=== PATIENT | male | born 1960 | race Caucasian/White ===

== ENCOUNTER 2016-12-30 11:02 | Emergency (ER) | payer OTHER ==
[~2016-12-30] VITALS: Ht 193 cm; Wt 135.0 kg
[~2016-12-30 11:02] MED LIST: AMLO10TA2 PO; CHLO25TA2 PO; DAPA1TAB3 PO; ENAL20TA PO; GLIM4TAB PO; HYDR-3580 PO; IBUP800T23 PO; METF500T PO; ROBA750T PO; STOOL SOFTNER PO
[2016-12-30 11:04] VITALS: BP 181/101; PULSE 98; RESP 20; TEMP 98.4; O2SAT 99
--- NOTE | 2016-12-30 11:12 | PD ---
HPI Chief Complaint: Complaint Time Seen by Provider: 11:11 Travel History International Travel<30 days: No Contact w/Intl Traveler<30days: No Traveled to known affect area: No History of Present Illness HPI 56-year-old male presents the emergency department with severe right flank pain. Patient's history is that he moved a couple of consciousness 2 weeks ago and thought he strained his back. He's had continued worsening right flank pain since that time. Yesterday he was seen by his primary care physician and had an ultrasound ordered showing a 9 mm stone in the right ureter. Patient was sent home with some medications but pain is much worse this morning, but he has no fever, chills, nausea, or vomiting. Pain is currently 10 over 10. Patient has no previous history of kidney stone prior to this. He is allergic to penicillin otherwise no known drug allergies. PFSH Past Medical History Autoimmune Disease: Yes (RA vs. SA vs fibromyalgia) Cardiovascular Problems: Yes High Cholesterol: Yes Diabetes: Yes Diminished Hearing: No Hypertension: Yes Immunizations Current: Yes Past Surgical History Other Surgery: Yes (LEFT KNEE REPAIR, AND LEFT SHOULDER) Social History Alcohol Use: Yes ("Rarely") Tobacco Use: No Substance Use: No Allergies-Medications (Allergen,Severity, Reaction): Coded Allergies: penicillin G (Unverified Allergy, Unknown, UNKNOWN, 12/30/16) Reported Meds & Prescriptions Reported Meds & Active Scripts Active Ibuprofen 800 Mg Tab 800 Mg PO Q8H PRN Robaxin (Methocarbamol) 750 Mg Tab 750 Mg PO Q8HR Reported Lisinopril 40 Mg Tab 40 Mg PO BID Flexeril (Cyclobenzaprine HCl) 10 Mg Tab 10 Mg PO TID Hydrocodone-Acetaminophen 7.5-325 mg Tab 1 Tab PO TID PRN [OTC stool softner] 1 Tab PO BID Enalapril (Enalapril Maleate) 20 Mg Tab 20 Mg PO BID Glimepiride 4 Mg Tab 4 Mg PO BIDAC Chlorthalidone 25 Mg Tab 25 Mg PO DAILY Amlodipine (Amlodipine Besylate) 10 Mg Tab 10 Mg PO DAILY Farxiga (Dapagliflozin) 10 Mg Tab 10 Mg PO DAILY Metformin (Metformin HCl) 500 Mg Tab 500 Mg PO BIDPC With meals Review of Systems Except as stated in HPI: all other systems reviewed are Neg General / Constitutional: No: Fever Eyes: No: Visual changes HENT: No: Headaches Cardiovascular: No: Chest Pain or Discomfort Respiratory: No: Shortness of Breath Gastrointestinal: No: Abdominal Pain Genitourinary: Positive: Flank Pain, No: Urgency, Frequency, Dysuria Musculoskeletal: No: Pain Skin: No Rash Neurologic: No: Weakness Psychiatric: No: Depression Endocrine: No: Polydipsia Hematologic/Lymphatic: No: Easy Bruising Physical Exam Narrative GENERAL: Patient appears in moderate to severe pain. Patient unable to get comfortable. SKIN: Warm and dry. Normal color. Normal turgor. No rash. HEAD: Atraumatic. Normocephalic. EYES: Pupils equal and round. No scleral icterus. No injection or drainage. ENT: No nasal bleeding or discharge. Mucous membranes pink and moist. Pharynx is clear. Airway is patent. NECK: Trachea midline. No JVD. CARDIOVASCULAR: Regular rate and rhythm. RESPIRATORY: No accessory muscle use. Clear to auscultation. Breath sounds equal bilaterally. GASTROINTESTINAL: Abdomen soft, non-tender, nondistended. Hepatic and splenic margins not palpable. Patient has severe right flank pain with percussion. MUSCULOSKELETAL: Extremities without clubbing, cyanosis, or edema. No obvious deformities. NEUROLOGICAL: Awake and alert. No obvious cranial nerve deficits. Motor grossly within normal limits. Five out of 5 muscle strength in the arms and legs. Normal speech. PSYCHIATRIC: Appropriate mood and affect; insight and judgment normal. Data Data Last Documented VS Vital Signs Date Time Temp Pulse Resp B/P (MAP) Pulse Ox O2 Delivery O2 Flow Rate FiO2 12/30/16 12:10 18 12/30/16 11:26 78 133/81 (98) 99 Room Air 12/30/16 11:04 98.4 Orders Orders Complete Blood Count With Diff (12/30/16 11:15) Comprehensive Metabolic Panel (12/30/16 11:15) Prothrombin Time / Inr (Pt) (12/30/16 11:15) Act Partial Throm Time (Ptt) (12/30/16 11:15) Urinalysis - C+S If Indicated (12/30/16 11:15) Ct Abd/Pel W/O Iv Contrast (12/30/16 11:15) Iv Access Insert/Monitor (12/30/16 11:15) Ecg Monitoring (12/30/16 11:15) Oximetry (12/30/16 11:15) Morphine Inj (Morphine Inj) (12/30/16 11:15) Ondansetron Inj (Zofran Inj) (12/30/16 11:15) Sodium Chlor 0.9% 1000 Ml Inj (Ns 1000 M (12/30/16 11:15) Sodium Chloride 0.9% Flush (Ns Flush) (12/30/16 11:15) Ketorolac Inj (Toradol Inj) (12/30/16 11:15) Hydromorphone Pf Inj (Dilaudid Pf Inj) (12/30/16 12:00) Dexamethasone Inj (Decadron Inj) (12/30/16 12:45) Radiology Film Requests (12/30/16 ) Sodium Chlor 0.9% 1000 Ml Inj (Ns 1000 M (12/30/16 12:45) Labs Laboratory Tests Test 12/30/16 11:15 White Blood Count 12.9 TH/MM3 Red Blood Count 6.71 MIL/MM3 Hemoglobin 18.4 GM/DL Hematocrit 56.1 % Mean Corpuscular Volume 83.5 FL Mean Corpuscular Hemoglobin 27.4 PG Mean Corpuscular Hemoglobin Concent 32.8 % Red Cell Distribution Width 15.9 % Platelet Count 179 TH/MM3 Mean Platelet Volume 9.4 FL Neutrophils (%) (Auto) 67.8 % Lymphocytes (%) (Auto) 20.7 % Monocytes (%) (Auto) 10.0 % Eosinophils (%) (Auto) 1.1 % Basophils (%) (Auto) 0.4 % Neutrophils # (Auto) 8.7 TH/MM3 Lymphocytes # (Auto) 2.7 TH/MM3 Monocytes # (Auto) 1.3 TH/MM3 Eosinophils # (Auto) 0.1 TH/MM3 Basophils # (Auto) 0.1 TH/MM3 CBC Comment DIFF FINAL Differential Comment Prothrombin Time 12.2 SEC Prothromb Time International Ratio 1.1 RATIO Activated Partial Thromboplast Time 26.6 SEC Urine Color LIGHT-YELLOW Urine Turbidity CLEAR Urine pH 6.5 Urine Specific [place] 1.004 Urine Protein NEG mg/dL Urine Glucose (UA) 1000 mg/dL Urine Ketones NEG mg/dL Urine Occult Blood NEG Urine Nitrite NEG Urine Bilirubin NEG Urine Urobilinogen LESS THAN 2.0 MG/DL Urine Leukocyte Esterase NEG Urine WBC 1 /hpf Microscopic Urinalysis Comment CULT NOT INDICATED Blood Urea Nitrogen 14 MG/DL Creatinine 1.37 MG/DL Random Glucose 146 MG/DL Total Protein 7.6 GM/DL Albumin 4.1 GM/DL Calcium Level 9.3 MG/DL Alkaline Phosphatase 52 U/L Aspartate Amino Transf (AST/SGOT) 25 U/L Alanine Aminotransferase (ALT/SGPT) 63 U/L Total Bilirubin 0.8 MG/DL Sodium Level 138 MEQ/L Potassium Level 3.9 MEQ/L Chloride Level 99 MEQ/L Carbon Dioxide Level 30.7 MEQ/L Anion Gap 8 MEQ/L Estimat Glomerular Filtration Rate 54 ML/MIN MDM Medical Decision Making Medical Screen Exam Complete: Yes Emergency Medical Condition: Yes Differential Diagnosis Right flank pain. Renal colic. Kidney stone. Muscle strain. Narrative Course Patient is medically stable although in pain at time of exam. Labs ordered including CBC, CMP, urinalysis, PT PTT and INR. CT of the abdomen/pelvis without contrast was ordered. IV access is obtained patient is given 4 mg Zofran IV, 4 mg, and 30 mg Toradol IV. 1000 mL normal saline bolus started. Patient required a additional dose of hydromorphone 1 mg IV for his pain. CBC is notable for leukocytosis of 12.9. Patient appears hemoconcentrated with an RBC of 6.71, hemoglobin of 18.4, hematocrit 56.1. CMP is notable for creatinine of 1.37, GFR 54, random glucose 146. Urinalysis is unremarkable except for urine glucose of 1000. Abdominal pelvis CT shows no obvious stone or pyelonephritis or other etiology to explain the patient's pain. Patient's pain is felt to be muscle skeletal origin. Patient is given 10 mg Decadron IV. Patient is continued on prednisone 20 mg twice a day 7 days. Patient is aware this will make his sugars somewhat higher. Patient is also given Percocet 5/325 one to 2 tabs every 6 hours #12. Patient is to use heat, ice, gentle stretching and follow with primary care physician as needed. Patient can return to the emergency room and if pain continues or worsens. Diagnosis Primary Impression: Back strain Qualified Codes: S39.012A - Strain of muscle, fascia and tendon of lower back , initial encounter Referrals: Primary Care Physician Patient Instructions: General Instructions, Low Back Strain (ED), Lower Back Exercises (ED) Additional Instructions: CBC is notable for leukocytosis of 12.9. Patient appears hemoconcentrated with an RBC of 6.71, hemoglobin of 18.4, hematocrit 56.1. CMP is notable for creatinine of 1.37, GFR 54, random glucose 146. Urinalysis is unremarkable except for urine glucose of 1000. Abdominal pelvis CT shows no obvious stone or pyelonephritis or other etiology to explain the patient's pain. Patient's pain is felt to be muscle skeletal origin. Patient is given 10 mg Decadron IV. Patient is continued on prednisone 20 mg twice a day 7 days. Patient is aware this will make his sugars somewhat higher. Patient is also given Percocet 5/325 one to 2 tabs every 6 hours #12. Patient is to use heat, ice, gentle stretching and follow with primary care physician as needed. Patient can return to the emergency room and if pain continues or worsens. Scripts Prednisone (Prednisone) 20 Mg Tab 20 MG PO BID for 7 Days, TAB 0 Refills Prov: Vitor Maddox MD 12/30/16 Oxycodone-Acetaminophen (Percocet) 5-325 mg Tab 1-2 TAB PO Q6H Y for PAIN, #12 TAB 0 Refills Prov: Vitor Maddox MD 12/30/16 Disposition: 01 DISCHARGE HOME Condition: Stable Dino Asencio Dec 30, 2016 11:12
[2016-12-30] MEDS ORDERED: MORPHINE SULFATE 4 MG/ML INJ IV PUSH ONE (11:15)
[2016-12-30] MEDS ORDERED: KETOROLAC TROMETHAMINE 30 MG/ML (IVP) VIAL IVP ONE (11:15)
[2016-12-30] MEDS ORDERED: SODIUM CHLORIDE 0.9% FLUSH 10 ML FLUSH IV FLUSH PRN (11:15)
[2016-12-30] MEDS ORDERED: ONDANSETRON HCL 4 MG/2 ML VIAL IVP ONE (11:15)
[2016-12-30] MEDS ORDERED: SODIUM CHLOR 0.9% 1000 ML INJ 1,000 ML IV SCH (11:15)
[2016-12-30 11:26] VITALS: BP 133/81; PULSE 78; RESP 18; O2SAT 99
[2016-12-30 11:35] LABS: AUTOMATED NEUTROPHIL # 8.7 TH/MM3 (1.8-7.7); BASOPHIL # 0.1 TH/MM3 (0-0.2); BASOPHIL % 0.4 % (0.0-2.0); EOSINOPHIL # 0.1 TH/MM3 (0-0.4); EOSINOPHIL % 1.1 % (0.0-4.0); HEMATOCRIT 56.1 % (39.0-51.0); HEMO FLAGS DIFF FINAL; LYMPH % 20.7 % (9.0-44.0); LYMPHOCYTE # 2.7 TH/MM3 (1.0-4.8); MEAN CELL VOLUME 83.5 FL (80.0-100.0); MEAN CORPUSCULAR HEMOGLOBIN 27.4 PG (27.0-34.0); MEAN CORPUSCULAR HGB CONC 32.8 % (32.0-36.0); NEUT % 67.8 % (16.0-70.0); PLATELET COUNT 179 TH/MM3 (150-450); RED BLOOD COUNT 6.71 MIL/MM3 (4.50-5.90); RED CELL DISTRIBUTION WIDTH 15.9 % (11.6-17.2); WHITE BLOOD COUNT 12.9 TH/MM3 (4.0-11.0)
[2016-12-30 11:38] LABS: BLOOD, URINE NEG (NEG); GLUCOSE,URINE 1000 mg/dL (NEG); KETONE, URINE NEG (NEG); NITRITE,URINE NEG (NEG); PH, URINE 6.5 (5.0-8.5); URINE COLOR LIGHT-YELLOW (YELLW/STRAW)
[2016-12-30] MEDS ORDERED: CYCL1TAB29 PO (11:40)
[2016-12-30] MEDS ORDERED: LISI40TA PO (11:42)
[2016-12-30 11:43] LABS: COMMENT (UR) CULT NOT INDICATED; CULTURE IF INDICATED CULT NOT INDICATED
[2016-12-30 11:45] LABS: APTT (PATIENT) 26.6 SEC (24.3-30.1); INTERNATIONAL NORMALIZED RATIO 1.1 RATIO; PROTHROMBIN TIME - PATIENT 12.2 SEC (9.8-11.6)
[2016-12-30 11:57] LABS: ALKALINE PHOSPHATASE 52 U/L (45-117); TOTAL BILIRUBIN ADULT 0.8 MG/DL (0.2-1.0)
[2016-12-30] MEDS ORDERED: HYDROmorphone HCL PF 1 MG/ML VIAL IV PUSH ONE (12:00)
[2016-12-30] MEDS ORDERED: HYDROmorphone HCL PF 1 MG/ML VIAL IVS ONE (12:00)
[2016-12-30 12:04] LABS: ALT (GPT) 63 U/L (12-78); ANION GAP 8 MEQ/L (5-15); AST (GOT) 25 U/L (15-37); BICARBONATE 30.7 MEQ/L (21.0-32.0); BLOOD UREA NITROGEN 14 MG/DL (7-18); CHLORIDE 99 MEQ/L (98-107); GLOMERULAR FILTRATION RATE 54 ML/MIN (>89); POTASSIUM 3.9 MEQ/L (3.5-5.1); SODIUM (NA) 138 MEQ/L (136-145)
--- NOTE | 2016-12-30 12:36 | RADRPT ---
EXAM DATE/TIME: 12/30/2016 12:07 [facility] COMPARISON: No previous studies available for comparison. INDICATIONS : Right flank pain. ORAL CONTRAST: No oral contrast ingested. RADIATION DOSE: 33.67 CTDIvol (mGy) ; Patient body habitus MEDICAL HISTORY : Cardiovascular disease. Hypertension. SURGICAL HISTORY : None. ENCOUNTER: Initial ACUITY: 1 day PAIN SCALE: 8/10 LOCATION: Right flank TECHNIQUE: Volumetric scanning of the abdomen and pelvis was performed. Using automated exposure control and adjustment of the mA and/or kV according to patient size, radiation dose was kept as low as reasonably achievable to obtain optimal diagnostic quality images. DICOM format image data is av ailable electronically for review and comparison. FINDINGS: TECHNIQUE: Volumetric scanning of the upper abdomen and pelvis was performed using the very low-d ose technique automated exposure control and adjustment of the mA and/or kV according to patient size , radiation dose was kept as low as reasonably achievable to obtain optimal diagnostic quality images . DICOM format image data is available electronically for review and comparison. FINDINGS: LOWER LUNGS: The visualized lower lungs are clear. UPPER ABDOMEN: Mild to moderate fatty replacement in the liver is evident. Spleen, pancreas, adr enals unremarkable. RIGHT KIDNEY: Mild perinephric stranding without stone. LEFT KIDNEY; Normal in size and shape. There is no mass, stone, or hydronephrosis. ADRENAL GLANDS: Within normal limits. BOWEL/MESENTERY: There is no retroperitoneal or mesenteric adenopathy. The region of the cecum a nd terminal ileum are unremarkable. PELVIS CONTENTS: The pelvic contents are unremarkable without diverticulitis or mass. INGUINAL: There is no lymphadenopathy or hernia. MUSCULOSKELETAL: Moderate degenerative changes are noted. CONCLUSION: Negative for stone. I don't see etiology of patient's pain. Lack of intravenou s contrast would make pyelonephritis difficult to exclude. Manish Lynch MD FACR on December 29, 2016 at 13:35 Board Certified Radiologist. This report was verified electronically.
[2016-12-30] MEDS ORDERED: SODIUM CHLOR 0.9% 1000 ML INJ 1,000 ML IV ONE (12:45)
[2016-12-30] MEDS ORDERED: DEXAMETHASONE SOD PHOS 20 MG/5 ML VIAL IV PUSH ONE (12:45)
[2016-12-30] MEDS ORDERED: PERC5TAB12 PO (12:48)
[2016-12-30] MEDS ORDERED: PRED20 PO (12:48)
--- NOTE | 2016-12-30 12:49 | PD ---
Data Data Last Documented VS Vital Signs Date Time Temp Pulse Resp B/P (MAP) Pulse Ox O2 Delivery O2 Flow Rate FiO2 12/30/16 12:10 18 12/30/16 11:26 78 133/81 (98) 99 Room Air 12/30/16 11:04 98.4 Orders Orders Complete Blood Count With Diff (12/30/16 11:15) Comprehensive Metabolic Panel (12/30/16 11:15) Prothrombin Time / Inr (Pt) (12/30/16 11:15) Act Partial Throm Time (Ptt) (12/30/16 11:15) Urinalysis - C+S If Indicated (12/30/16 11:15) Ct Abd/Pel W/O Iv Contrast (12/30/16 11:15) Iv Access Insert/Monitor (12/30/16 11:15) Ecg Monitoring (12/30/16 11:15) Oximetry (12/30/16 11:15) Morphine Inj (Morphine Inj) (12/30/16 11:15) Ondansetron Inj (Zofran Inj) (12/30/16 11:15) Sodium Chlor 0.9% 1000 Ml Inj (Ns 1000 M (12/30/16 11:15) Sodium Chloride 0.9% Flush (Ns Flush) (12/30/16 11:15) Ketorolac Inj (Toradol Inj) (12/30/16 11:15) Hydromorphone Pf Inj (Dilaudid Pf Inj) (12/30/16 12:00) Dexamethasone Inj (Decadron Inj) (12/30/16 12:45) Radiology Film Requests (12/30/16 ) Sodium Chlor 0.9% 1000 Ml Inj (Ns 1000 M (12/30/16 12:45) Labs Laboratory Tests Test 12/30/16 11:15 White Blood Count 12.9 TH/MM3 Red Blood Count 6.71 MIL/MM3 Hemoglobin 18.4 GM/DL Hematocrit 56.1 % Mean Corpuscular Volume 83.5 FL Mean Corpuscular Hemoglobin 27.4 PG Mean Corpuscular Hemoglobin Concent 32.8 % Red Cell Distribution Width 15.9 % Platelet Count 179 TH/MM3 Mean Platelet Volume 9.4 FL Neutrophils (%) (Auto) 67.8 % Lymphocytes (%) (Auto) 20.7 % Monocytes (%) (Auto) 10.0 % Eosinophils (%) (Auto) 1.1 % Basophils (%) (Auto) 0.4 % Neutrophils # (Auto) 8.7 TH/MM3 Lymphocytes # (Auto) 2.7 TH/MM3 Monocytes # (Auto) 1.3 TH/MM3 Eosinophils # (Auto) 0.1 TH/MM3 Basophils # (Auto) 0.1 TH/MM3 CBC Comment DIFF FINAL Differential Comment Prothrombin Time 12.2 SEC Prothromb Time International Ratio 1.1 RATIO Activated Partial Thromboplast Time 26.6 SEC Urine Color LIGHT-YELLOW Urine Turbidity CLEAR Urine pH 6.5 Urine Specific [place] 1.004 Urine Protein NEG mg/dL Urine Glucose (UA) 1000 mg/dL Urine Ketones NEG mg/dL Urine Occult Blood NEG Urine Nitrite NEG Urine Bilirubin NEG Urine Urobilinogen LESS THAN 2.0 MG/DL Urine Leukocyte Esterase NEG Urine WBC 1 /hpf Microscopic Urinalysis Comment CULT NOT INDICATED Blood Urea Nitrogen 14 MG/DL Creatinine 1.37 MG/DL Random Glucose 146 MG/DL Total Protein 7.6 GM/DL Albumin 4.1 GM/DL Calcium Level 9.3 MG/DL Alkaline Phosphatase 52 U/L Aspartate Amino Transf (AST/SGOT) 25 U/L Alanine Aminotransferase (ALT/SGPT) 63 U/L Total Bilirubin 0.8 MG/DL Sodium Level 138 MEQ/L Potassium Level 3.9 MEQ/L Chloride Level 99 MEQ/L Carbon Dioxide Level 30.7 MEQ/L Anion Gap 8 MEQ/L Estimat Glomerular Filtration Rate 54 ML/MIN MDM Supervised Visit with JAMIN: Yes Narrative Course The history, exam, and medical decision-making in the associated mid-level provider note were completed with my assistance. I reviewed and agree with the findings presented. I attest that I had a [id number] encounter with the patient on the same day, and personally performed and documented my assessment and findings in the medical record. *My assessment and Findings: 56-year-old man presents emergent from with severe back pain. Was seen in urgent care was reportedly told he had a kidney stone. He appears very uncomfortable. No evidence of spinal cord compression. CT scan does not show any kidney stones. Labs unremarkable. Urine is negative. Symptoms started after he was lifting a couch. This likely musculoskeletal. Recommend supportive treatment and outpatient follow-up. Scripts Prednisone (Prednisone) 20 Mg Tab 20 MG PO BID for 7 Days, TAB 0 Refills Prov: Vitor Maddox MD 12/30/16 Oxycodone-Acetaminophen (Percocet) 5-325 mg Tab 1-2 TAB PO Q6H Y for PAIN, #12 TAB 0 Refills Prov: Vitor Maddox MD 12/30/16 Condition: Stable Vitor Maddox MD Dec 30, 2016 12:49
[2016-12-30 13:29] VITALS: RESP 18
[2016-12-30 13:37] VITALS: BP 136/71
[2016-12-31] MEDS ORDERED: BACL20TA PO (13:14)
[2016-12-31] MEDS ORDERED: NAPR-239 PO (13:14)
== END 2016-12-30 13:38 | disposition home or self-care (01) ==
LOC: NEPC 11:02
DX: S39.012A Strain of muscle, fascia and tendon of lower back, initial encounter (principal); X50.9XXA Other and unspecified overexertion or strenuous movements or postures, initial encounter
CPT/HCPCS: 74176; 80053; 81001; 85025; 85610; 85730; 96361; 96374; 96375; 99285; J1100; J1170; J1885; J2270; J2405; J7030

== ENCOUNTER 2016-12-31 10:39 | Emergency (ER) | payer OTHER ==
[~2016-12-31 10:39] MED LIST changes: +CYCL1TAB29 PO; +LISI40TA PO; +PERC5TAB12 PO; +PRED20 PO
[2016-12-31 10:41] VITALS: BP 145/76; PULSE 98; RESP 17; TEMP 98.8; O2SAT 99
[2016-12-31 10:55] VITALS: BP 149/79; PULSE 99; RESP 20; O2SAT 98
[2016-12-31] MEDS ORDERED: LORazepam 2 MG/ML VIAL IV PUSH ONE (11:15)
[2016-12-31] MEDS ORDERED: KETOROLAC TROMETHAMINE 30 MG/ML (IVP) VIAL IVP ONE (11:15)
[2016-12-31 12:11] VITALS: BP 130/70; PULSE 97; RESP 18; O2SAT 96
--- NOTE | 2016-12-31 12:31 | PD ---
HPI Chief Complaint: Flank/Kidney Pain Time Seen by Provider: 11:09 Travel History International Travel<30 days: No Contact w/Intl Traveler<30days: No Traveled to known affect area: No History of Present Illness HPI C/O RIGHT FLANK, NON RAD, 8/10, WORSE WITH MOVEMENT , SEEN YESTERDAY FOR SAME , PFSH Past Medical History Autoimmune Disease: Yes (RA vs. SA vs fibromyalgia) Cardiovascular Problems: Yes High Cholesterol: Yes Diabetes: Yes Patient Takes Glucophage: Yes Diminished Hearing: No Genitourinary: Yes (kidney stones) Hypertension: Yes Immunizations Current: Yes Past Surgical History Other Surgery: Yes (LEFT KNEE REPAIR, AND LEFT SHOULDER) Social History Alcohol Use: Yes ("Rarely") Tobacco Use: No Substance Use: No Allergies-Medications (Allergen,Severity, Reaction): Coded Allergies: penicillin G (Unverified Allergy, Unknown, UNKNOWN, 12/30/16) Reported Meds & Prescriptions Reported Meds & Active Scripts Active Prednisone 20 Mg Tab 20 Mg PO BID 7 Days Percocet (Oxycodone-Acetaminophen) 5-325 mg Tab 1-2 Tab PO Q6H PRN Ibuprofen 800 Mg Tab 800 Mg PO Q8H PRN Robaxin (Methocarbamol) 750 Mg Tab 750 Mg PO Q8HR Reported Lisinopril 40 Mg Tab 40 Mg PO BID Flexeril (Cyclobenzaprine HCl) 10 Mg Tab 10 Mg PO TID Hydrocodone-Acetaminophen 7.5-325 mg Tab 1 Tab PO TID PRN [OTC stool softner] 1 Tab PO BID Enalapril (Enalapril Maleate) 20 Mg Tab 20 Mg PO BID Glimepiride 4 Mg Tab 4 Mg PO BIDAC Chlorthalidone 25 Mg Tab 25 Mg PO DAILY Amlodipine (Amlodipine Besylate) 10 Mg Tab 10 Mg PO DAILY Farxiga (Dapagliflozin) 10 Mg Tab 10 Mg PO DAILY Metformin (Metformin HCl) 500 Mg Tab 500 Mg PO BIDPC With meals Review of Systems Except as stated in HPI: all other systems reviewed are Neg Musculoskeletal: Positive: Myalgias, Pain Physical Exam Narrative GENERAL: SKIN: Warm and dry. HEAD: Atraumatic. Normocephalic. EYES: Pupils equal and round. No scleral icterus. No injection or drainage. ENT: No nasal bleeding or discharge. Mucous membranes pink and moist. NECK: Trachea midline. No JVD. CARDIOVASCULAR: Regular rate and rhythm. RESPIRATORY: No accessory muscle use. Clear to auscultation. Breath sounds equal bilaterally. GASTROINTESTINAL: Abdomen soft, non-tender, nondistended. Hepatic and splenic margins not palpable. MUSCULOSKELETAL: Extremities without clubbing, cyanosis, or edema. No obvious deformities. PALPABLE MUSCLE SPASM ON RT POST ILIOLUMBARIS REGION NEUROLOGICAL: Awake and alert. No obvious cranial nerve deficits. Motor grossly within normal limits. Five out of 5 muscle strength in the arms and legs. Normal speech. PSYCHIATRIC: Appropriate mood and affect; insight and judgment normal. Data Data Last Documented VS Vital Signs Date Time Temp Pulse Resp B/P (MAP) Pulse Ox O2 Delivery O2 Flow Rate FiO2 12/31/16 12:11 97 18 130/70 (90) 96 Room Air 12/31/16 10:41 98.8 Orders Orders Ketorolac Inj (Toradol Inj) (12/31/16 11:15) Lorazepam Inj (Ativan Inj) (12/31/16 11:15) Hydromorphone Pf Inj (Dilaudid Pf Inj) (12/31/16 13:15) MDM Medical Decision Making Medical Screen Exam Complete: Yes Emergency Medical Condition: Yes Medical Record Reviewed: Yes Differential Diagnosis AAA V PYELO V KIDNEY STONE V APPY Narrative Course PT SEEN AND HAD ALL LABS REVIEWED WELL CT STONE DONE YESTERDAY WHICH WAS REVIEWED AGAIN BY RADIOLOGIST, NO ADDITIIONAL FINDINGS, NO CAUSE OR REASON TO REPEAT CT AT THIS TIME. PATIENT GIVEN PAIN CONTROL AND THEN D/C Diagnosis Primary Impression: MUSCLE SPASM Patient Instructions: General Instructions, Muscle Spasm (ED) Scripts Naproxen DR (Naproxen EC) 375 Mg Tabdr 375 MG PO BID, #30 TAB 0 Refills Prov: Jevon Bravo MD 12/31/16 Baclofen (Baclofen) 20 Mg Tab 20 MG PO TID for Muscle Spasm, #30 TAB 0 Refills Prov: Jevon Bravo MD 12/31/16 Disposition: 01 DISCHARGE HOME Condition: Stable Jevon Bravo MD Dec 31, 2016 12:31
[2016-12-31] MEDS ORDERED: NAPR-239 PO (13:14)
[2016-12-31] MEDS ORDERED: BACL20TA PO (13:14)
[2016-12-31] MEDS ORDERED: HYDROmorphone HCL PF 1 MG/ML VIAL IV PUSH ONE (13:15)
[2016-12-31 13:33] VITALS: BP 146/77
== END 2016-12-31 13:40 | disposition home or self-care (01) ==
LOC: NEPE 10:39
DX: M62.838 Other muscle spasm (principal); E78.00 Pure hypercholesterolemia, unspecified; E11.9 Type 2 diabetes mellitus without complications; I10 Essential (primary) hypertension; Z88.0 Allergy status to penicillin; Z79.1 Long term (current) use of non-steroidal anti-inflammatories (NSAID); Z79.899 Other long term (current) drug therapy
CPT/HCPCS: 96374; 96375; 99284; J1170; J1885; J2060